=== PATIENT | male | born 1995 | race Caucasian/White ===

== ENCOUNTER → 2021-10-31 | Emergency (ER) | payer OTHER ==
[~2021-10-31] VITALS: Ht 180.3 cm; Wt 79.4 kg
[~2021-10-31] MED LIST: AMOX-430 PO; CT SWABBABLE VALVE TRANS SET 1 EA INFUS.SET MC ONE; FAMOTIDINE/PF INJ 20 MG/2 ML VIAL IV ONE; IOHEXOL-300 100 ML VIAL IV ONE; IV LR 1000 ML 1,000 ML IV ONE; IV NS 0.9% 1,000 ML BAG IV ONE; IV NS 0.9% 250 ML IV ONE; METO-295 PO; METOCLOPRAMIDE HCL 10 MG/2 ML VIAL IV ONE; METOCLOPRAMIDE HCL 10 MG/2 ML VIAL ONE; MORPHINE SULFATE INJ 2 MG/ML DISP.SYRIN IV ONE; ONDA4TAB5 PO; ONDANSETRON HCL/PF - ER 4 MG/2 ML VIAL IV ONE; ONDANSETRON HCL/PF 4 MG/2 ML VIAL IV ONE; ONDANSETRON HCL/PF 4 MG/2 ML VIAL ONE; POTASSIUM CHLORIDE 20 MEQ TAB.PRT.SR PO ONE; Thiamine 100 MG in IV D5W 50 ML IV SCH; oxyCODONE IR immediate release 5 MG ONE; oxyCODONE IR immediate release 5 MG PO PRN
--- NOTE | 2021-10-31 08:43 | NUR ---
pt [facility]ra from the streets to er bed 12 c/o diffuse abdominal pain worst to RLQ w/ nuasea and vomiting x 2 days does admits to etoh and marijuana use. noted bruising to RLQ but denies any recent trauma. placed on monitor. vss. awaiting md elam.
--- NOTE | 2021-10-31 09:00 | NUR ---
IV LINE ESTABLISHED BLOOD DRAWN AND SENT TO LAB.
--- NOTE | 2021-10-31 09:06 | NUR ---
CALLED PHARMACY FOR THIAMINE DRIP IV.
[2021-10-31 09:11] LABS: BASOPHILS # (AUTO) 0.1 K/uL (0.0-0.2); EOSINOPHILS % (AUTO) 0.4 % (0.0-6.0); HEMATOCRIT 52 % (39-51); HEMOGLOBIN 17.6 g/dL (13.5-17.5); MEAN CORPUSCULAR HGB CONC 34 g/dl (31.0-36.0); MEAN CORPUSCULAR VOLUME 99 fL (80-96); MONOCYTES # (AUTO) 0.5 K/uL (0.1-1.30); MONOCYTES % (AUTO) 7.6 % (2.0-12.0); NEUTROPHILS # (AUTO) 4.3 K/uL (1.8-8.9); PLATELET COUNT (AUTO) 227 K/uL (150-450); RED BLOOD CELL COUNT(AUTO) 5.21 MIL/uL (4.5-6.0)
[2021-10-31 09:20] LABS: CALCIUM, SERUM 9.3 mg/dL (8.5-10.1); CREATININE 0.8 mg/dL (0.6-1.3); POTASSIUM 3.2 mmol/L (3.5-5.1)
[2021-10-31 09:22] LABS: MAGNESIUM 1.8 mg/dL (1.8-2.4)
[2021-10-31 09:26] LABS: ALBUMIN 4.6 g/dL (3.4-5.0); BILIRUBIN,DIRECT 0.3 mg/dL (0.0-0.2); BILIRUBIN,TOTAL 0.7 mg/dL (0.2-1.0)
--- NOTE | 2021-10-31 12:40 | NUR ---
SS Consult: SS Consult requested for Drug abuse. The pt. is a 26-year-old male patient who was came in to ED due to abdominal pain. Per EMR, Pt. is upon SS consult, the pt. is Alert & Oriented x 4 and makes avoidant eye contact. The pt. appears unkempt and presents with and depressed mood and affect. Pt. has quiet low speech. The pt. cooperative with SW. Pt. denies current SI/HI and denies hallucinations. NAVEED explored pt.'s living situation. Per the pt., he currently resides at home alone [[address] [address]; [phone]]. Pt. declined to discuss his support system. NAVEED explored pt.'s drug & ETOH use. Pt. states he DRINKS 1/5 bottle of whiskey. However. noted pt. drinks a bottle of whiskey per day, pt. admitted to throwing up not being to hold down any food. Pt. also stated he uses marijuana at times. Pt. stated he knows drinking is a problem for him. composite worker provided support with motivational interviewing, education regarding alcohol dependence, brief intervention and offeres referral to rehab. Pt. refused rehab stating he does not have money to pay for rehab. NAVEED explained that [facility] and [facility] can be covered by his insurance. Pt. expressed understanding but still refused rehab. NAVEED explored pt.'s mental health Hx. Pt. denies any Hx. with mental health issues. Pt. states he used to receive Food stamps. Per pt. he is ambulatory & independent with all his ADL's. Plan: NAVEED provided pt. with Addiction resources and he accepted them. Pt. states he will be able to return to home [[address] [address]; [phone]]. NAVEED discussed with who cordell agreeable. ADDICTION RESOURCES For Drugs and Alcohol [facility] Substance Abuse Helpline([facility] Outpatient treatment, residential treatment, recovery support for youth and adults [facility] www.GreenRoad TechnologiesfaRingCentrallycounseling.MycooN [facility] Teen programs for drug/alcohol education and support [facility] [place]. Program for adults, sliding scale provides support and education [employer] www.[employer].org [place]; Outpatient/residential treatment programs; transition to sober living [facility] www.cri-help.org [place]; Outpatient and residential treatment programs; transition to sober living [facility] [place] [facility] Yoel Borja; Outpatient education and supportive programs for teens and adults [facility] www.oasiswomensrecatchison hospitaly.org [place]; Residential treatment and work program for females only [place] www.[employer].Tempronics [place]: Outpatient/residential treatment program for teens and young adults [facility] www.[facility].org [place] Detox, inpatient, outpatient for adults and youth [facility], [facility]. [place]; Outpatient programs and referrals to community residential programs. Alcoholics Anonymous -SFV information and meeting and schedules www.aa-intergroup.org Ua-Txiv-Osjeycb https://al-anon.org/ [place] support groups for family of alcoholics. Marijuana Anonymous www.madistrict6.org -SFV listing of meetings Narcotics Anonymous www.na.org SOBER LIVING RESOURCES [facility] www.soberhousing.net A non-profit agency that provides resources to recovery and sober living homes throughout [facility] Men's Sober Living Homes: A Work in Progress, [facility], [employer] [place] [facility], [place] [facility] Yoel Ricketts Women's Sober Living Homes: [facility] x [phone] [place], [place] [facility], [place], operated by [facility] Sober Living Homes: [facility] Counseling--Outpatient [facility] [address] [place] [address] (Specializes in in-depth psychotherapy for emotional distress: anxiety, depression, interpersonal conflicts, life transitions, childhood abuse) [facility] [address] [place] [address] (Assist with solving problem marital difficulties, separation & divorce, aging parents, & grief, chronic & terminal illness) [facility] [address] [place] [address] (Deal with loss & grief, anxiety, marital difficulties) Homebound/Mental Health Services [address] [facility] [address] [place] [address] (Provide in-home mental services to people who are incapable of leaving their homes) [facility]eds of the Elderly [facility] Service[facility] Center [address] [place] [address] [facility] [address] [place] [address] Mental Health Services [facility] [address] [place] [address] Services: Outpatient therapy for children, teens, young adults, adults, older adults, and families; Psychiatric services, medication support Psychiatric Outpatient Services [facility] Partial Hospitalization and Intensive Outpatient Program (Managed Care and Jeff Only)[address] [facility]. [facility] [phone] [facility] Partial Hospitalization and Outpatient [id number] [facility]. [address] [place], [place] [phone] [facility] Partial Hospitalization and Outpatient [id number] [facility] [place], [place] [phone] [facility] [address] [place], [place] [phone] [facility] Yoel Ricketts Partial Hospitalization and Outpatient [id number] GILLIAN [phone] Crisis and Hotline Telephone Numbers 24-Hour service unless stated [place] Crisis Hotlines: [facility] Mental Health/Crisis Line........[phone] Suicide Prevention Center (24 Hours).......[phone] Suicide Prevention Crisis Center.......834.508.8219 (24 Hours) Assaults Against Women Hotline.........904.615.8627 (24 Hours -- [facility]) Women and Children Crisis Care Home...........[phone] (24 Hours) Child Abuse Hotline............152.115.6797 [facility] of Childrens Services [facility] (24 Hours)..........[phone] Alcoholics Anonymous (24 Hours)..........[phone] Cocaine Anonymous (24 Hours)............[phone] Narcotics Anonymous (24 Hours)..........[phone] [address] [facility] [address], [place] [address]
[2021-10-31 14:06] VITALS: BP 122/86
--- NOTE | 2021-10-31 14:07 | NUR ---
Patient discharged to home in stable condition. RX ,Written and verbal after care instructions given. Patient verbalizes understanding of instruction.IV removed. Catheter intact and site benign. Pressure and 4x4 applied to site. No bleeding noted.
--- NOTE | 2021-10-31 14:30 | NUR ---
[facility] referral: NAVEED was called at bedside as pt.'s aunt, Suzi was here and encouraged pt. to seek rehab for alcoholism. Pt. is agreeable to detox & residential treatment. NAVEED addressed the patient & family's questions. NAVEED faxed clinicals to [facility] FAX:[phone] TEL:[phone]
== END | disposition home or self-care (01) ==
LOC: ER 08:34
DX: R11.2 Nausea with vomiting, unspecified (principal); K52.9 Noninfective gastroenteritis and colitis, unspecified; R10.31 Right lower quadrant pain; F10.20 Alcohol dependence, uncomplicated; Z79.899 Other long term (current) drug therapy; Y90.7 Blood alcohol level of 200-239 mg/100 ml
CPT/HCPCS: 36415; 74177; 80048; 80076; 80320; 83690; 83735; 85025; 96361; 96374; 96375; 96376; 99285; J2405 ×3; J2765; J3411; J3490; J7050; J7060; J7120 ×2; Q9967; G0480